=== PATIENT | male | born 1995 | race Caucasian/White ===

== ENCOUNTER 2017-12-09 12:38 | Inpatient (IN) | payer MEDICARE ==
[~2017-12-09] VITALS: Ht 185.4 cm; Wt 54.7 kg
[2017-12-09 14:04] LABS: BASOPHILS % (AUTO) 0.4 % (0.0-5.0); EOSINOPHILS % (AUTO) 4.7 % (0.0-8.0); HEMATOCRIT 59.7 % (42-54); LYMPHOCYTES % (AUTO) 35.1 % (21.0-51.0); MEAN CORPUSCULAR HEMOGLOBIN 28.7 pg (27.0-33.0); MEAN CORPUSCULAR VOLUME 86.9 fL (80-100); NEUTROPHILS % (AUTO) 53.8 % (40.0-77.0); NUCLEATED RED BLOOD CELLS 0.2 % (0.0-0.19); PLATELET COUNT (AUTO) 155 K/uL (130-400); RED BLOOD CELL COUNT(AUTO) 6.86 MIL/uL (4.50-6.20); RED CELL DISTRIBUTION WIDTH 12.4 % (11.0-15.5); WHITE BLOOD COUNT (AUTO) 7.5 K/uL (4.8-10.8)
[2017-12-09 14:16] LABS: ALBUMIN 3.7 g/dL (3.5-5.0); BILIRUBIN,TOTAL 1.4 mg/dL (0.2-1.0); CREATININE 0.9 mg/dL (0.5-1.5); POTASSIUM 3.5 mmol/L (3.5-5.1); TOTAL PROTEIN, SERUM 8.7 g/dL (6.0-8.3)
[2017-12-09] MEDS ORDERED: DEXTROSE 5 %-0.45 % NACL 0 ML IV ONE (15:57)
[2017-12-09] MEDS ORDERED: SODIUM CHLORIDE 0.9% 1000ML 1,000 ML IV ONE (15:57)
[2017-12-09] MEDS ORDERED: ACETAMINOPHEN 325 MG TAB PO PRN (16:00)
[2017-12-09] MEDS ORDERED: ONDANSETRON HCL MDV 20ML 2 MG/ML VIAL IVP PRN (16:00)
[2017-12-09 16:53] VITALS: BP 103/59
[2017-12-09 19:00] VITALS: BP 94/62
[2017-12-09] MEDS: DEXTROSE 5%-WATER 1,000 ML IV SCH (19:46)
[2017-12-09 23:00] VITALS: BP 91/60
[2017-12-10 03:00] VITALS: BP 94/65
[2017-12-10] MEDS ORDERED: HC1C1.5 TP (04:00)
[2017-12-10] MEDS ORDERED: NYST100P2 MC (04:00)
[2017-12-10] MEDS ORDERED: TRAZ150T79 PO (04:00)
[2017-12-10] MEDS ORDERED: LACO50TA2 PO (04:00)
[2017-12-10] MEDS ORDERED: DIPH25TA51 PO (04:00)
[2017-12-10] MEDS ORDERED: VITADO TP (04:00)
[2017-12-10] MEDS ORDERED: AMAN100C12 PO (04:00)
[2017-12-10] MEDS ORDERED: GUAI100S13 PO (04:00)
[2017-12-10] MEDS ORDERED: ATOM25 PO (04:00)
[2017-12-10] MEDS ORDERED: IPRA3AMP24 IH (04:00)
[2017-12-10] MEDS ORDERED: DOCU100C33 PO (04:00)
[2017-12-10] MEDS ORDERED: MONT10TA21 PO (04:00)
[2017-12-10] MEDS ORDERED: DOCU50LI13 PO (04:00)
[2017-12-10] MEDS ORDERED: MELA5CAP PO (04:00)
[2017-12-10] MEDS ORDERED: ACET-66 PO (04:00)
[2017-12-10] MEDS ORDERED: IBUP-2354 PO (04:00)
[2017-12-10] MEDS ORDERED: MAGN800O PO (04:00)
[2017-12-10] MEDS ORDERED: GABA-531 PO (04:00)
[2017-12-10] MEDS ORDERED: LEVE10006 PO (04:00)
[2017-12-10] MEDS ORDERED: SODI104S3 NS (04:00)
[2017-12-10] MEDS ORDERED: DIAZ2.5K RC (04:00)
[2017-12-10] MEDS ORDERED: LIDO454G TP (04:00)
[2017-12-10] MEDS ORDERED: GING500C PO (04:00)
[2017-12-10] MEDS: DEXTROSE 5%-WATER 1,000 ML IV SCH ×2 (05:35→14:21)
[2017-12-10 05:40] LABS: BASOPHILS % (AUTO) 0.8 % (0.0-5.0); EOSINOPHILS % (AUTO) 5.8 % (0.0-8.0); HEMATOCRIT 55.3 % (42-54); MEAN CORPUSCULAR HEMOGLOBIN 29.3 pg (27.0-33.0); MEAN CORPUSCULAR HGB CONC 33.3 g/dL (32.0-36.0); MONOCYTES % (AUTO) 6.7 % (3.0-13.0); NEUTROPHILS % (AUTO) 46.7 % (40.0-77.0); NUCLEATED RED BLOOD CELLS 0.1 % (0.0-0.19); PLATELET COUNT (AUTO) 155 K/uL (130-400); RED BLOOD CELL COUNT(AUTO) 6.29 MIL/uL (4.50-6.20); RED CELL DISTRIBUTION WIDTH 12.3 % (11.0-15.5); WHITE BLOOD COUNT (AUTO) 6.1 K/uL (4.8-10.8)
[2017-12-10 05:57] LABS: ALBUMIN 3.2 g/dL (3.5-5.0); BILIRUBIN,TOTAL 1.5 mg/dL (0.2-1.0); CREATININE 0.7 mg/dL (0.5-1.5); POTASSIUM 3.4 mmol/L (3.5-5.1); TOTAL PROTEIN, SERUM 7.6 g/dL (6.0-8.3)
[2017-12-10 07:37] VITALS: BP 95/74
[2017-12-10] MEDS ORDERED: GUAIFENESIN SUGAR-FREE 100 MG/5 ML UDCUP PO PRN (07:45)
[2017-12-10] MEDS ORDERED: DIPHENHYDRAMINE HCL 25 MG CAPSULE PO PRN (07:45)
[2017-12-10] MEDS ORDERED: IBUPROFEN 200 MG TABLET PO PRN (07:45)
[2017-12-10] MEDS ORDERED: IPRATROPIUM/ALBUTEROL SULFATE 3 ML SOLUTION IH PRN (08:00)
[2017-12-10] MEDS ORDERED: HYDROCORTISONE 1% 28.35 GM CREAM TP PRN (08:00)
[2017-12-10] MEDS ORDERED: DOCUSATE SODIUM 100 MG CAP PO PRN (08:00)
[2017-12-10] MEDS ORDERED: ACETAMINOPHEN EXTRA STRENGTH 500 MG TABLET PO PRN (08:00)
[2017-12-10] MEDS: [UNRECOGNIZED DRUG - OTHER] TP SCH ×3 (09:00→21:00)
[2017-12-10] MEDS: DIAZEPAM 10 MG PR SCH ×3 (09:00→21:00)
[2017-12-10] MEDS ORDERED: DEXTROSE 5%-WATER 250 ML IV SCH (09:00)
[2017-12-10] MEDS ORDERED: MAGNESIUM HYDROXIDE 1200 MG PO PRN (09:00)
[2017-12-10] MEDS ORDERED: [UNRECOGNIZED DRUG - OTHER] TP PRN (09:00)
[2017-12-10] MEDS: STRATTERA 25 MG PO SCH (09:00)
[2017-12-10] MEDS: DOCUSATE NA 100MG/10ML UDCUP PO SCH ×2 (09:00→23:09)
[2017-12-10] MEDS: VIMPAT 50 MG PO SCH (09:00)
[2017-12-10] MEDS ORDERED: NYSTATIN 15 GM POWDER TP PRN (09:00)
[2017-12-10] MEDS: VIT A TP SCH ×3 (09:00→21:00)
[2017-12-10] MEDS: GINGER 550 MG PO SCH (09:00)
[2017-12-10] MEDS: LEVETIRACETAM 500 MG TABLET PO SCH ×2 (11:32→23:09)
[2017-12-10] MEDS: AMANTADINE HCL 100 MG CAPSULE PO SCH ×2 (11:32→23:10)
[2017-12-10] MEDS: PANTOPRAZOLE SODIUM 40 MG TABLET.DR PO SCH (11:33)
[2017-12-10] MEDS: MONTELUKAST SODIUM 10 MG TAB PO SCH (11:34)
[2017-12-10] MEDS: SODIUM CHLORIDE 45 ML SPRY NS SCH ×2 (11:35→23:10)
[2017-12-10 12:09] VITALS: BP 93/61
[2017-12-10] MEDS: GABAPENTIN 300 MG CAPSULE PO SCH ×3 (12:23→23:08)
[2017-12-10] MEDS: ENOXAPARIN SODIUM 30 MG/0.3 ML SQ SCH (12:24)
[2017-12-10 16:01] VITALS: BP 110/67
[2017-12-10 19:48] VITALS: BP 92/54
[2017-12-10] MEDS: **HM** MELATONIN 5MG PO SCH (21:00)
[2017-12-10] MEDS: TRAZODONE HCL 50 MG TAB PO SCH (23:08)
[2017-12-10 23:28] VITALS: BP 94/68
[2017-12-11 03:00] VITALS: BP 98/66
[2017-12-11] MEDS: DIAZEPAM 10 MG PR SCH ×4 (03:00→20:49)
[2017-12-11] MEDS: DEXTROSE 5%-WATER 1,000 ML IV SCH ×2 (03:15→20:49)
[2017-12-11 05:00] LABS: BASOPHILS % (AUTO) 0.5 % (0.0-5.0); EOSINOPHILS % (AUTO) 6.3 % (0.0-8.0); HEMATOCRIT 48.7 % (42-54); LYMPHOCYTES % (AUTO) 47.6 % (21.0-51.0); MEAN CORPUSCULAR HEMOGLOBIN 28.7 pg (27.0-33.0); MEAN CORPUSCULAR HGB CONC 33.2 g/dL (32.0-36.0); MEAN CORPUSCULAR VOLUME 86.3 fL (80-100); MONOCYTES % (AUTO) 4.8 % (3.0-13.0); NEUTROPHILS % (AUTO) 40.8 % (40.0-77.0); NUCLEATED RED BLOOD CELLS 0.2 % (0.0-0.19); PLATELET COUNT (AUTO) 124 K/uL (130-400); RED BLOOD CELL COUNT(AUTO) 5.64 MIL/uL (4.50-6.20); RED CELL DISTRIBUTION WIDTH 11.7 % (11.0-15.5); WHITE BLOOD COUNT (AUTO) 5.5 K/uL (4.8-10.8)
[2017-12-11 05:14] LABS: ALBUMIN 2.8 g/dL (3.5-5.0); BILIRUBIN,TOTAL 1.6 mg/dL (0.2-1.0); CREATININE 0.6 mg/dL (0.5-1.5); TOTAL PROTEIN, SERUM 6.7 g/dL (6.0-8.3)
[2017-12-11 07:07] LABS: APPEARANCE,URINE CLEAR (CLEAR); BILIRUBIN,URINE MODERATE (NEGATIVE); COLOR,URINE ORANGE (YELLOW); GLUCOSE, URINE (UA) 100 mg/dL (NEGATIVE); KETONES,URINE NEGATIVE (NEGATIVE); LEUKOCYTE ESTERASE ,URINE NEGATIVE (NEGATIVE); NITRATE,URINE POSITIVE (NEGATIVE); OCCULT BLOOD,URINE NEGATIVE (NEGATIVE); PH,URINE 5.5 (5.0-8.0); PROTEIN,URINE 30 (NEGATIVE); UROBILINOGEN,URINE >=8.0 mg/dL (0.2-1.0)
[2017-12-11 07:12] LABS: BACTERIA,URINE Rare /HPF (None Seen); RBC,URINE 0-1 /HPF (0-1); SQUAMOUS EPITHELIAL CELL,UR Rare /HPF (0-2)
[2017-12-11 07:13] LABS: MUCUS,URINE Moderate LPF (None Seen)
[2017-12-11 07:49] VITALS: BP 96/66
[2017-12-11] MEDS: STRATTERA 25 MG PO SCH (09:00)
[2017-12-11] MEDS: VIT A TP SCH ×3 (09:00→20:50)
[2017-12-11] MEDS: GINGER 550 MG PO SCH (09:00)
[2017-12-11] MEDS: VIMPAT 50 MG PO SCH (09:00)
[2017-12-11] MEDS: [UNRECOGNIZED DRUG - OTHER] TP SCH ×3 (09:00→20:50)
[2017-12-11] MEDS: LEVETIRACETAM 500 MG TABLET PO SCH ×2 (10:02→20:47)
[2017-12-11] MEDS: MONTELUKAST SODIUM 10 MG TAB PO SCH (10:02)
[2017-12-11] MEDS: GABAPENTIN 300 MG CAPSULE PO SCH ×3 (10:02→20:47)
[2017-12-11] MEDS: DOCUSATE NA 100MG/10ML UDCUP PO SCH ×2 (10:02→20:48)
[2017-12-11] MEDS: PANTOPRAZOLE SODIUM 40 MG TABLET.DR PO SCH (10:02)
[2017-12-11] MEDS: AMANTADINE HCL 100 MG CAPSULE PO SCH ×2 (10:03→20:48)
[2017-12-11] MEDS: SODIUM CHLORIDE 45 ML SPRY NS SCH ×2 (10:04→20:51)
[2017-12-11] MEDS: ENOXAPARIN SODIUM 30 MG/0.3 ML SQ SCH (10:05)
[2017-12-11 12:00] VITALS: BP_SYST 95; BP_SYST 96; BP_DIAS 60; BP_DIAS 66
[2017-12-11 16:00] VITALS: BP 95/60
[2017-12-11] MEDS: LIDOCAINE HCL-MPF 1% 2ML VIAL IVP PRN ×2 (18:59→23:34)
[2017-12-11] MEDS: POTASSIUM CHLORIDE 20MEQ/100ML 100 ML IV PRN ×2 (18:59→23:33)
[2017-12-11 19:00] VITALS: BP 108/84
[2017-12-11] MEDS: TRAZODONE HCL 50 MG TAB PO SCH (20:47)
[2017-12-11] MEDS: **HM** MELATONIN 5MG PO SCH (20:49)
[2017-12-12 00:06] VITALS: BP 113/75
[2017-12-12] MEDS: DIAZEPAM 10 MG PR SCH ×4 (03:00→20:58)
[2017-12-12] MEDS: DEXTROSE 5%-WATER 1,000 ML IV SCH ×3 (03:57→23:45)
[2017-12-12 04:00] VITALS: BP 98/61
[2017-12-12 05:33] LABS: HEMATOCRIT 49.1 % (42-54); MEAN CORPUSCULAR HEMOGLOBIN 29.5 pg (27.0-33.0); MEAN CORPUSCULAR VOLUME 84.4 fL (80-100); PLATELET COUNT (AUTO) 149 K/uL (130-400); RED BLOOD CELL COUNT(AUTO) 5.83 MIL/uL (4.50-6.20); RED CELL DISTRIBUTION WIDTH 11.7 % (11.0-15.5); WHITE BLOOD COUNT (AUTO) 7.1 K/uL (4.8-10.8)
[2017-12-12 05:48] LABS: CREATININE 0.5 mg/dL (0.5-1.5); PHOSPHORUS 3.7 mg/dL (2.5-4.9); POTASSIUM 3.2 mmol/L (3.5-5.1)
[2017-12-12] MEDS: POTASSIUM CHLORIDE 20MEQ/100ML 100 ML IV PRN ×2 (06:04→15:30)
[2017-12-12] MEDS: LIDOCAINE HCL-MPF 1% 2ML VIAL IVP PRN ×2 (06:10→15:31)
[2017-12-12 06:44] LABS: EOSINOPHILS % (MANUAL) 6 % (1-6); LYMPHOCYTES % (MANUAL) 25 % (22-44); MAN.DIFF COMMENT-IMPRESSION MANUAL DIFFERENTIAL; MONOCYTES % (MANUAL) 4 % (2-9); PLATELET MORPHOLOGY COMMENT ADEQUATE; REACTIVE LYMPHOCYTES 3 % (0-0); SEGMENTED NEUTROPHILS % 62 % (40-70)
[2017-12-12 08:00] VITALS: BP 93/57
[2017-12-12] MEDS ORDERED: MAGNESIUM 2GM PREMIX 50ML 50 ML IV SCH (08:30)
[2017-12-12] MEDS: STRATTERA 25 MG PO SCH (09:00)
[2017-12-12] MEDS: [UNRECOGNIZED DRUG - OTHER] TP SCH ×3 (09:00→20:58)
[2017-12-12] MEDS: VIT A TP SCH ×3 (09:00→20:58)
[2017-12-12] MEDS: GINGER 550 MG PO SCH (09:00)
[2017-12-12] MEDS: VIMPAT 50 MG PO SCH (09:00)
[2017-12-12] MEDS: GABAPENTIN 300 MG CAPSULE PO SCH ×3 (09:34→20:55)
[2017-12-12] MEDS: PANTOPRAZOLE SODIUM 40 MG TABLET.DR PO SCH (09:34)
[2017-12-12] MEDS: MONTELUKAST SODIUM 10 MG TAB PO SCH (09:34)
[2017-12-12] MEDS: AMANTADINE HCL 100 MG CAPSULE PO SCH ×2 (09:34→20:55)
[2017-12-12] MEDS: LEVETIRACETAM 500 MG TABLET PO SCH ×2 (09:34→20:55)
[2017-12-12] MEDS: DOCUSATE NA 100MG/10ML UDCUP PO SCH ×2 (09:34→20:55)
[2017-12-12] MEDS: SODIUM CHLORIDE 45 ML SPRY NS SCH ×2 (09:35→20:58)
[2017-12-12] MEDS: ENOXAPARIN SODIUM 30 MG/0.3 ML SQ SCH (09:35)
[2017-12-12 12:00] VITALS: BP 94/56
[2017-12-12 16:00] VITALS: BP 98/54
[2017-12-12 19:00] VITALS: BP 95/55
[2017-12-12] MEDS: TRAZODONE HCL 50 MG TAB PO SCH (20:55)
[2017-12-12] MEDS: **HM** MELATONIN 5MG PO SCH (20:58)
[2017-12-13] VITALS (7 sets, daily range): BP systolic 91–114; BP diastolic 50–66
[2017-12-13] MEDS: DIAZEPAM 10 MG PR SCH ×3 (02:39→20:09)
[2017-12-13 04:14] LABS: POTASSIUM 3.2 mmol/L (3.5-5.1)
[2017-12-13] MEDS: LIDOCAINE HCL-MPF 1% 2ML VIAL IVP PRN (04:32)
[2017-12-13] MEDS: POTASSIUM CHLORIDE 20MEQ/100ML 100 ML IV PRN (04:32)
[2017-12-13 08:21] LABS: BASOPHILS % (AUTO) 0.2 % (0.0-5.0); EOSINOPHILS % (AUTO) 4.2 % (0.0-8.0); HEMATOCRIT 46.5 % (42-54); LYMPHOCYTES % (AUTO) 35.8 % (21.0-51.0); MEAN CORPUSCULAR HEMOGLOBIN 29.2 pg (27.0-33.0); MEAN CORPUSCULAR HGB CONC 34.7 g/dL (32.0-36.0); MEAN CORPUSCULAR VOLUME 84.1 fL (80-100); MONOCYTES % (AUTO) 5.1 % (3.0-13.0); NEUTROPHILS % (AUTO) 54.7 % (40.0-77.0); NUCLEATED RED BLOOD CELLS 0.1 % (0.0-0.19); PLATELET COUNT (AUTO) 122 K/uL (130-400); RED BLOOD CELL COUNT(AUTO) 5.53 MIL/uL (4.50-6.20); RED CELL DISTRIBUTION WIDTH 11.6 % (11.0-15.5); WHITE BLOOD COUNT (AUTO) 6.2 K/uL (4.8-10.8)
[2017-12-13 08:28] LABS: CREATININE 0.7 mg/dL (0.5-1.5); POTASSIUM 3.5 mmol/L (3.5-5.1)
[2017-12-13] MEDS: GINGER 550 MG PO SCH (08:33)
[2017-12-13] MEDS: VIMPAT 50 MG PO SCH (08:35)
[2017-12-13] MEDS: STRATTERA 25 MG PO SCH (08:35)
[2017-12-13] MEDS: VIT A TP SCH ×2 (08:36→20:10)
[2017-12-13] MEDS: [UNRECOGNIZED DRUG - OTHER] TP SCH ×2 (08:36→20:10)
[2017-12-13] MEDS: DEXTROSE 5%-WATER 1,000 ML IV SCH ×2 (09:45→19:45)
[2017-12-13] MEDS: DOCUSATE NA 100MG/10ML UDCUP PO SCH ×2 (10:06→20:08)
[2017-12-13] MEDS: SODIUM CHLORIDE 45 ML SPRY NS SCH ×2 (10:06→20:09)
[2017-12-13] MEDS: PANTOPRAZOLE SODIUM 40 MG TABLET.DR PO SCH (10:06)
[2017-12-13] MEDS: AMANTADINE HCL 100 MG CAPSULE PO SCH ×2 (10:06→20:09)
[2017-12-13] MEDS: GABAPENTIN 300 MG CAPSULE PO SCH ×3 (10:06→20:09)
[2017-12-13] MEDS: MONTELUKAST SODIUM 10 MG TAB PO SCH (10:07)
[2017-12-13] MEDS: LEVETIRACETAM 500 MG TABLET PO SCH ×2 (10:08→20:08)
[2017-12-13] MEDS: ENOXAPARIN SODIUM 30 MG/0.3 ML SQ SCH (10:08)
[2017-12-13] MEDS: TRAZODONE HCL 50 MG TAB PO SCH (20:09)
[2017-12-13] MEDS: **HM** MELATONIN 5MG PO SCH (20:09)
[2017-12-14] MEDS: DIAZEPAM 10 MG PR SCH ×3 (03:00→15:00)
[2017-12-14 04:06] LABS: BASOPHILS % (AUTO) 0.6 % (0.0-5.0); EOSINOPHILS % (AUTO) 4.3 % (0.0-8.0); HEMATOCRIT 47.7 % (42-54); LYMPHOCYTES % (AUTO) 43.4 % (21.0-51.0); MEAN CORPUSCULAR HEMOGLOBIN 29.2 pg (27.0-33.0); MEAN CORPUSCULAR HGB CONC 34.6 g/dL (32.0-36.0); MEAN CORPUSCULAR VOLUME 84.5 fL (80-100); MONOCYTES % (AUTO) 5.3 % (3.0-13.0); NEUTROPHILS % (AUTO) 46.4 % (40.0-77.0); PLATELET COUNT (AUTO) 138 K/uL (130-400); RED BLOOD CELL COUNT(AUTO) 5.64 MIL/uL (4.50-6.20); RED CELL DISTRIBUTION WIDTH 11.8 % (11.0-15.5); WHITE BLOOD COUNT (AUTO) 5.8 K/uL (4.8-10.8)
[2017-12-14 04:22] LABS: CREATININE 0.7 mg/dL (0.5-1.5); POTASSIUM 3.5 mmol/L (3.5-5.1)
[2017-12-14 04:30] VITALS: BP 96/63
[2017-12-14] MEDS: DEXTROSE 5%-WATER 1,000 ML IV SCH ×2 (04:58→10:24)
[2017-12-14 08:01] VITALS: BP 90/50
[2017-12-14] MEDS: VIMPAT 50 MG PO SCH (09:00)
[2017-12-14] MEDS: [UNRECOGNIZED DRUG - OTHER] TP SCH ×2 (09:00→14:00)
[2017-12-14] MEDS: STRATTERA 25 MG PO SCH (09:00)
[2017-12-14] MEDS: VIT A TP SCH ×2 (09:00→14:00)
[2017-12-14] MEDS: GINGER 550 MG PO SCH (09:00)
[2017-12-14] MEDS: ENOXAPARIN SODIUM 30 MG/0.3 ML SQ SCH (09:00)
[2017-12-14] MEDS: PANTOPRAZOLE SODIUM 40 MG TABLET.DR PO SCH (09:53)
[2017-12-14] MEDS: MONTELUKAST SODIUM 10 MG TAB PO SCH (09:53)
[2017-12-14] MEDS: GABAPENTIN 300 MG CAPSULE PO SCH (09:53)
[2017-12-14] MEDS: DOCUSATE NA 100MG/10ML UDCUP PO SCH (09:54)
[2017-12-14] MEDS: LEVETIRACETAM 500 MG TABLET PO SCH (09:54)
[2017-12-14] MEDS: AMANTADINE HCL 100 MG CAPSULE PO SCH (09:54)
[2017-12-14] MEDS: SODIUM CHLORIDE 45 ML SPRY NS SCH (09:55)
[2017-12-14 10:52] VITALS: BP 122/71
[2017-12-14 15:44] VITALS: BP 106/77
== END 2017-12-14 19:15 | disposition home or self-care (01) | DRG 682 ==
LOC: EDH 12:38 → 3BH 15:31
PROVIDERS: ADMIT Hospitalist; ATTEND Hospitalist
DX: N17.9 Acute kidney failure, unspecified (principal); R53.2 Functional quadriplegia; R47.01 Aphasia; E87.0 Hyperosmolality and hypernatremia; E86.0 Dehydration; E87.8 Other disorders of electrolyte and fluid balance, not elsewhere classified; G40.909 Epilepsy, unspecified, not intractable, without status epilepticus; Z53.29 Procedure and treatment not carried out because of patient's decision for other reasons; F90.9 Attention-deficit hyperactivity disorder, unspecified type; Z88.5 Allergy status to narcotic agent; Z79.899 Other long term (current) drug therapy; Z74.01 Bed confinement status; Z93.1 Gastrostomy status
CPT/HCPCS: 36415; 71045; 74230; 80048; 80053; 81001; 83605; 83735; 83935; 84100; 84132; 84295; 85025; 87088; 92610; 92611; 94664; 97039; 99291; A4351; J1650; J3475; J3480; J3490; J7030; J7042; J7070